=== PATIENT | male | born 1980 | race Caucasian/White ===

== ENCOUNTER 2016-12-26 03:38 | Observation (INO) | payer MEDICAID ==
[~2016-12-26] VITALS: Ht 181.6 cm; Wt 90.0 kg
[2016-12-26] MEDS ORDERED: SODIUM CHLORIDE 0.9% 1,000ML IVBOLUS ONE (04:00)
[2016-12-26 04:15] LABS: HEMOGLOBIN 15.5 g/dL (13.7-18.0)
[2016-12-26 04:28] LABS: ASPARTATE AMINO TRANSFERASE 22 U/L (15-37); BLOOD UREA NITROGEN 9 mg/dL (7-18)
[2016-12-26 04:31] LABS: ACETAMINOPHEN < 2 mcg/mL (10-30)
[2016-12-26 04:33] LABS: DAU SCREEN DISCLAIMER
[2016-12-26] MEDS ORDERED: POTASSIUM CHLORIDE 20 MEQ TAB.ER.PRT PO ONE (05:30)
[2016-12-26] MEDS ORDERED: OLAN10TA9 PO (06:13)
[2016-12-26] MEDS ORDERED: RAME8TAB8 PO (06:13)
[2016-12-26] MEDS ORDERED: ZIPR80CA2 PO (06:13)
[2016-12-26] MEDS ORDERED: ZOLP10TA5 PO (06:13)
[2016-12-26] MEDS ORDERED: POTASSIUM CHLORIDE 20 MEQ TAB.ER.PRT ONE (06:21)
[2016-12-26] MEDS ORDERED: ACETAMINOPHEN 325 MG TABLET PO PRN (08:00)
[2016-12-26] MEDS ORDERED: ONDANSETRON ODT 4 MG PO PRN (08:00)
[2016-12-26] MEDS ORDERED: DOCUSATE 100 MG CAPSULE PO PRN (08:00)
[2016-12-26] MEDS ORDERED: NICOTINE 14MG/24 HR PATCH.TD24 TD SCH (08:00)
[2016-12-26 10:29] VITALS: BP 126/68
[2016-12-26 10:44] VITALS: BP 128/68
== END 2016-12-26 13:00 ==
LOC: ED 04:19 → INTOOBSV 05:33 → EDIP 05:33 → 3E 08:30
PROVIDERS: ADMIT Internal Medicine; ATTEND Internal Medicine
DX: T42.6X2A Poisoning by other antiepileptic and sedative-hypnotic drugs, intentional self-harm, initial encounter (principal); F31.9 Bipolar disorder, unspecified; G47.00 Insomnia, unspecified; F10.10 Alcohol abuse, uncomplicated; F17.200 Nicotine dependence, unspecified, uncomplicated; E87.6 Hypokalemia; D72.829 Elevated white blood cell count, unspecified; E44.1 Mild protein-calorie malnutrition; X58.XXXA Exposure to other specified factors, initial encounter; Y92.89 Other specified places as the place of occurrence of the external cause; Y93.89 Activity, other specified; Y99.8 Other external cause status
CPT/HCPCS: 36415; 80053; 80307; 80329; 85025; 93005; 96360; 99285; G0378; J7030; G0480

== ENCOUNTER 2017-06-24 15:43 | Emergency (ER) | payer MEDICAID ==
[~2017-06-24] VITALS: Ht 180.3 cm; Wt 82.4 kg
[~2017-06-24 15:43] MED LIST: OLAN10TA9 PO; RAME8TAB19 PO; ZIPR80CA2 PO; ZOLP10TA5 PO
[2017-06-24 18:19] VITALS: BP 120/86
== END 2017-06-24 19:03 | disposition home or self-care (01) ==
LOC: ED 16:48
DX: F10.129 Alcohol abuse with intoxication, unspecified (principal); F31.9 Bipolar disorder, unspecified
CPT/HCPCS: 99283

== ENCOUNTER 2017-09-18 11:26 | Emergency (ER) | payer MEDICAID ==
[~2017-09-18] VITALS: Ht 180.3 cm; Wt 77.0 kg
[2017-09-18 22:35] VITALS: BP 149/85
== END 2017-09-18 22:42 | disposition home or self-care (01) ==
LOC: ED 12:29
DX: F10.229 Alcohol dependence with intoxication, unspecified (principal); F31.9 Bipolar disorder, unspecified; F17.200 Nicotine dependence, unspecified, uncomplicated
CPT/HCPCS: 99283

== ENCOUNTER 2017-09-27 07:51 | Emergency (ER) | payer MEDICAID ==
[~2017-09-27] VITALS: Ht 180.3 cm; Wt 74.6 kg
[2017-09-27 07:52] VITALS: BP 125/93
[2017-09-27 09:11] LABS: MICROSCOPIC NOT IND
[2017-09-27 09:14] LABS: CULTURE INDICATED? NO
[2017-09-27] MEDS ORDERED: IBUPROFEN 200 MG TABLET ONE (09:29)
[2017-09-27] MEDS ORDERED: IBUPROFEN 800 MG TABLET PO ONE (09:30)
== END 2017-09-27 10:12 | disposition home or self-care (01) ==
LOC: ED 10:05
DX: S29.012A Strain of muscle and tendon of back wall of thorax, initial encounter (principal); X58.XXXA Exposure to other specified factors, initial encounter; Y93.89 Activity, other specified; Y92.89 Other specified places as the place of occurrence of the external cause; Y99.8 Other external cause status
CPT/HCPCS: 81003; 99285

== ENCOUNTER 2019-09-20 10:48 | Emergency (ER) | payer SELFPAY ==
[~2019-09-20] VITALS: Ht 180.3 cm; Wt 71.3 kg
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
[2019-09-20] MEDS ORDERED: ONDANSETRON 2MG/ML, 2ML ONE (11:52)
[2019-09-20 11:54] LABS: MEAN CORPUSCULAR HEMOGLOBIN 32.6 pg (27.5-34.5); MEAN CORPUSCULAR HGB CONC 33.2 g/dL (33.2-36.2); MEAN CORPUSCULAR VOLUME 98.1 fL (81-97); MEAN PLATELET VOLUME 8.6 fL (7.4-10.4); PLATELET COUNT 284 x10^3/uL (130-400); RED BLOOD COUNT 4.66 x10^6/uL (4.38-5.82); RED CELL DISTRIBUTION WIDTH 16.3 % (9.4-14.8)
[2019-09-20] MEDS ORDERED: SODIUM CHLORIDE FLUSH 10ML SYR IVF ONE (12:00)
[2019-09-20] MEDS ORDERED: SODIUM CHLORIDE 0.9% 1,000ML IVBOLUS ONE (12:00)
[2019-09-20] MEDS ORDERED: MECLIZINE CHEWABLE 25 MG TAB PO ONE (12:00)
[2019-09-20] MEDS ORDERED: ONDANSETRON 2MG/ML, 2ML IVPush ONE (12:00)
[2019-09-20 12:03] LABS: ALBUMIN 3.1 g/dL (3.4-5.0); ANION GAP 13 mmol/L (5-15); CALCIUM 8.2 mg/dL (8.5-10.1); CHLORIDE 101 mmol/L (98-107)
[2019-09-20 12:07] LABS: TROPONIN I < 0.015 ng/mL (0.000-0.045)
[2019-09-20 12:12] LABS: BASOPHILS # (AUTO) 0.06 x10^3/uL (0-0.1); BASOPHILS % (AUTO) 0 % (0-1); EOSINOPHILS % (AUTO) 0 % (1-7); LYMPHOCYTES # (AUTO) 1.41 x10^3/uL (1-3.4); LYMPHOCYTES % (AUTO) 8 % (22-44); MD SCAN; MONOCYTES # (AUTO) 1.21 x10^3/uL (0.2-0.8); MONOCYTES % (AUTO) 7 % (2-9); NEUTROPHILS # (AUTO) 15.16 x10^3/uL (1.8-6.8); NEUTROPHILS % (AUTO) 85 % (42-75)
[2019-09-20 13:38] LABS: MICROSCOPIC INDICATED
[2019-09-20 13:54] LABS: CULTURE INDICATED? NO
--- NOTE | 2019-09-20 14:17 | NUR ---
ATTEMPTED TO ASSIST PT TO AMBULATE. PT UNABLE TO STAND AND MAINTAIN BALANCE BY HIMSELF. PT RETURNED TO BED BEFORE ANY AMBULATION WAS ABLE TO BE ATTEMPTED. C/O DIZZINESS. ERP MADE AWARE. CALL LIGHT IN REACH.
--- NOTE | 2019-09-20 14:50 | NUR ---
PT TO MRI
--- NOTE | 2019-09-20 15:05 | NUR ---
ASSUMED CARE OF PATIENT. REPORT GIVEN FROM ROXANA KAPLAN. PT AT MRI.
[2019-09-20 15:51] VITALS: BP 107/62
--- NOTE | 2019-09-20 15:56 | NUR ---
DR NASH WENT OVER MRI RESULTS WITH PATIENT. PATIENT IS ABLE TO DRESS SELF AND AMBULATE SAFELY. PT GIVEN A TAXI VOUCHER. VS STABLE. PT DISCHARGED.
== END 2019-09-20 15:58 | disposition home or self-care (01) ==
LOC: ED 13:13
DX: R42 Dizziness and giddiness (principal); R11.2 Nausea with vomiting, unspecified; R07.9 Chest pain, unspecified; F17.200 Nicotine dependence, unspecified, uncomplicated
CPT/HCPCS: 36415; 70450; 70551; 71045; 80048; 81001; 82040; 84484; 85025; 93005; 96361; 96374; 99284; J2405; J7030

== ENCOUNTER 2021-01-03 20:12 | Emergency (ER) | payer MEDICAID ==
[~2021-01-03] VITALS: Ht 180.3 cm; Wt 70.9 kg
--- NOTE | 2021-01-03 21:04 | NUR ---
pt in [place] now
[2021-01-03 21:52] LABS: BASOPHILS % (AUTO) 1 % (0-1); EOSINOPHILS % (AUTO) 2 % (1-7); LYMPHOCYTES % (AUTO) 28 % (22-44); MEAN CORPUSCULAR HEMOGLOBIN 29.6 pg (27.5-34.5); MEAN CORPUSCULAR HGB CONC 33.2 g/dL (33.2-36.2); MEAN PLATELET VOLUME 9.2 fL (7.4-10.4); MONOCYTES % (AUTO) 12 % (2-9); NEUTROPHILS % (AUTO) 57 % (42-75); PLATELET COUNT 387 x10^3/uL (130-400); RED BLOOD COUNT 4.58 x10^6/uL (4.38-5.82); RED CELL DISTRIBUTION WIDTH 16.3 % (9.4-14.8)
--- NOTE | 2021-01-03 21:52 | NUR ---
PT IN BED WITH SPRINKLING SYSTEM IRRIGATOR IN PLACE, BED RAILS UP BILATERALLY AND CALL LIGHT WITHIN REACH. PT VERBALIZES UNDERSTANDING AND AGREEMENT WITH PLAN OF CARE. PT IN BED WITH NO SIGNS OR SYMPTOMS OF ACUTE DISTRESS NOTED RESPIRATIONS EVEN AND UNLABORED
[2021-01-03 22:03] LABS: ALANINE AMINOTRANSFERASE 21 U/L (12-78); ALBUMIN 3.8 g/dL (3.4-5.0); ANION GAP 7 mmol/L (5-15); CALCIUM 9.2 mg/dL (8.5-10.1); CHLORIDE 110 mmol/L (98-107); CREATININE 0.88 mg/dL (0.7-1.3)
[2021-01-03 22:06] LABS: ALKALINE PHOSPHATASE 97 U/L (45-117); BILIRUBIN,TOTAL 0.6 mg/dL (0.2-1.0); TOTAL PROTEIN 6.9 g/dL (6.4-8.2)
[2021-01-03 22:11] LABS: MD NO
[2021-01-03 22:41] LABS: INTERNATIONAL NORMALIZED RATIO 1.02 (0.93-1.1); PROTHROMBIN TIME 10.9 Seconds (9.6-11.5)
[2021-01-03 23:02] VITALS: BP 117/68
== END 2021-01-03 23:06 | disposition home or self-care (01) ==
LOC: ED 20:42
DX: G89.29 Other chronic pain (principal); M79.662 Pain in left lower leg; M79.661 Pain in right lower leg; Z76.0 Encounter for issue of repeat prescription; Z86.718 Personal history of other venous thrombosis and embolism
CPT/HCPCS: 36415; 71046; 80053; 85025; 85610; 85730; 93005; 93970; 99285

== ENCOUNTER 2021-04-20 22:31 | Emergency (ER) | payer MEDICAID ==
[~2021-04-20] VITALS: Ht 180.3 cm; Wt 63.3 kg
[~2021-04-20 22:31] MED LIST changes: +OLAN10TA69 PO; -OLAN10TA9 PO
[2021-04-20 22:39] VITALS: BP 140/89
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
[2021-04-20] MEDS ORDERED: DIPH,PERTUSS(ACELL),TET VAC/PF 0.5 ML IM-VACC ONE (23:30)
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
--- NOTE | 2021-04-20 23:56 | NUR ---
PT SCREAMING IN ROOM FOR A URINAL. PT SWEARING AT [facility]. WAITING ON CT RESULTS AND [facility].
--- NOTE | 2021-04-21 | NUR ---
PT REFUSING VITAL SIGNS
--- NOTE | 2021-04-21 00:13 | NUR ---
[facility] at bedside
--- NOTE | 2021-04-21 00:45 | NUR ---
DR SPIVEY AT BEDSIDE
--- NOTE | 2021-04-21 01:38 | NUR ---
GAVE PT DISCHARGE INSTRUCTIONS. PT ONCE AGAIN BECAME VERBALLY AGRESSIVE. SWEARING AT THIS RN. PT SAID "I ASKED FOR A DAMN ICE PACK" THIS RN OFFERED TO GIVE IT TO HIM AND HE CONTINUED TO YELL AT THIS RN FOR THE LACK OF TREATMENT AND SAID THAT HE WAS GOING TO GO TO [place]. PT REFUSED TO TAKE DISCHARGE PAPERS. SECURITY CALLED TO ESCORT PATIENT OUT.
== END 2021-04-21 01:43 | disposition home or self-care (01) ==
LOC: ED 04-21
DX: S02.2XXA Fracture of nasal bones, initial encounter for closed fracture (principal); S02.32XA Fracture of orbital floor, left side, initial encounter for closed fracture; S01.112A Laceration without foreign body of left eyelid and periocular area, initial encounter; F17.200 Nicotine dependence, unspecified, uncomplicated; Y04.8XXA Assault by other bodily force, initial encounter; Y93.89 Activity, other specified; Y92.89 Other specified places as the place of occurrence of the external cause; Y99.8 Other external cause status
CPT/HCPCS: 70450; 99284